=== PATIENT | female | born 1965 | race Caucasian/White ===

== ENCOUNTER 2016-11-14 09:54 | Emergency (ER) | payer OTHER | END 2016-11-14 10:35 | disposition left against medical advice (07) | LOC: UCEAST 09:54 | DX: T14.8 Other injury of unspecified body region (principal); W57.XXXA Bitten or stung by nonvenomous insect and other nonvenomous arthropods, initial encounter; Y93.9 Activity, unspecified; Y92.9 Unspecified place or not applicable; Z53.21 Procedure and treatment not carried out due to patient leaving prior to being seen by health care provider ==

== ENCOUNTER 2016-11-14 17:12 | Emergency (ER) | payer OTHER ==
[2016-11-14 18:52] VITALS: BP 106/64
== END 2016-11-14 19:36 | disposition left against medical advice (07) ==
LOC: UCEAST 17:12
DX: T14.8 Other injury of unspecified body region (principal); W57.XXXA Bitten or stung by nonvenomous insect and other nonvenomous arthropods, initial encounter; Y93.9 Activity, unspecified; Y92.9 Unspecified place or not applicable; Z53.21 Procedure and treatment not carried out due to patient leaving prior to being seen by health care provider

== ENCOUNTER 2017-05-23 11:33 | Day surgery (SDC) | payer OTHER ==
[~2017-05-23 11:33] MED LIST: Acetaminophen TAB* 325 MG PO PRN; Buffered Lidocaine 0.9% SYRIN* 5 ML/SYR SYRINGE INTRADERM ONE; Bupivacaine 0.25% SDV* 30 ML ONE; DiMENhydriNATE IV* 50 MG/ML VIAL IV PUSH PRN; HYDROcodone/ACETAMIN 5-325 MG* 1 TAB PO PRN; HYDROmorphone INJ* 1 MG/ML CARPUJECT SYRINGE IV PRN; Ondansetron INJ* 2 MG/ML VIAL IV PRN; PROCHLORPERAZINE INJ 5 MG/ML 2 ML VIAL IV PRN; fentaNYL* 50 MCG/ML 2 ML VIAL (100 MCG VIAL) IV PRN
[2017-05-23] MEDS ORDERED: fentaNYL* 50 MCG/ML 2 ML VIAL (100 MCG VIAL) ONE ×2 (12:25→13:31)
[2017-05-23] MEDS ORDERED: Midazolam* 1 MG/ML 2 ML VIAL (2 MG) ONE ×2 (12:25→13:32)
[2017-05-23 14:31] VITALS: BP 99/53
--- NOTE | 2017-05-24 23:50 | OP ---
OPERATIVE REPORT: DATE OF OPERATION: 05/23/17 DATE OF : 67 SURGEON: Teddy Boland MD ELECTRICAL TESTER: BEATRIZ Lipscomb ANESTHESIOLOGIST: Dr. Reyes. ANESTHESIA: Local MAC. PRE-OP DIAGNOSES: 1. Symptomatic hardware, right thumb, status post right thumb basal joint fusion 2 years ago. 2. Hypertrophic and widened scar, right thumb. POST-OP DIAGNOSES: 1. Symptomatic hardware, right thumb, status post right thumb basal joint fusion 2 years ago. 2. Hypertrophic and widened scar, right thumb. OPERATIVE PROCEDURE: 1. Removal of Synthes plate and screws, right thumb. 2. Excision of 4 cm hypertrophic scar with primary closure. INDICATIONS: Hadelida had the fusion 2 years ago. The plate was bothering her. We talked about her o ptions. She wanted to have it excised. ESTIMATED BLOOD LOSS: 2 mL. COMPLICATIONS: None. FINDINGS: As expected. DESCRIPTION OF PROCEDURE: Isael was seen in the preoperative holding area. The correct side, site, and procedure were identified. We came back to the operating room. I infiltrated the operative ar ea with 0.25% plain Marcaine. The arm was prepped and draped in the usual fashion. A time-out was performed. I exsanguinated the arm with Esmarch and the tourniquet was inflated to 250 mmHg. I went ahead and e llipsed out the hypertrophic and widened scar. This measured a little over 4 cm. This was taken do wn full thickness below the dermis and this was excised and handed off. I then identified the first dorsal compartment tendon and the EPB tendon. I developed a plane just dorsal to the EPB tendon. This took me right down to the plate, all the dissection was done longitudinally to protect the hetal ersing sensory nerves. I raised full thickness flaps right at the plate. Five screws were removed in standard fashion. The plate came out easily. I took the rongeur and I leveled off all of the demetrius ne screws and jagged edges. Once everything was nice and smooth, I irrigated out the wound. Skin w as closed with 4-0 nylon suture. The wound was dressed with Xeroform, 4x4's, sterile Webril, and Ac e bandage. She was then taken to the recovery room in stable condition. [id number]/[facility] #: [id number]
== END 2017-05-23 14:52 | disposition home or self-care (01) ==
LOC: OREAST 11:33
PROVIDERS: ATTEND Orthopaedic Surgery Hand Surgery
DX: T84.84XA Pain due to internal orthopedic prosthetic devices, implants and grafts, initial encounter (principal); Y83.1 Surgical operation with implant of artificial internal device as the cause of abnormal reaction of the patient, or of later complication, without mention of misadventure at the time of the procedure; F41.8 Other specified anxiety disorders; M19.90 Unspecified osteoarthritis, unspecified site
CPT/HCPCS: 88300; J2250; J3010